=== PATIENT | male | born 1960 | race Caucasian/White ===

== ENCOUNTER 2021-04-14 23:41 | Inpatient (IN) | payer BC ==
[~2021-04-14] VITALS: Ht 167.6 cm; Wt 112.1 kg
[~2021-04-14 23:41] MED LIST: ACTOS 30 MG TAB30 MG PO; ASPIRIN325; KLOR-CON 1010 MEQ PO; PRINIVIL10 MG PO; SIMCOR 1,000-21 EACH PO; TOPROL XL25 MG PO
[2021-04-14 23:44] VITALS: BP 114/61
[2021-04-15] MEDS ORDERED: FREESTYLE LIBR1 EAC2 MISCELL (00:19)
[2021-04-15] MEDS ORDERED: TRESIBA FL200 UNIT/1 SUBQ (00:20)
[2021-04-15] MEDS ORDERED: SYNJARDY XR 121 EACH PO (00:20)
[2021-04-15] MEDS ORDERED: SIMVASTATIN40 MG PO (00:20)
[2021-04-15] MEDS ORDERED: METOPROLOL SUCC25 M1 PO (00:20)
[2021-04-15] MEDS ORDERED: NOVOLOG FL100 UNIT/M SUBQ (00:23)
[2021-04-15 00:29] LABS: ABSOLUTE NEUTROPHILS 10.8 thou/uL (1.4-8.2); BASOPHILS 1.3 % (0.0-2.0); EOSINOPHILS 0.8 % (0.0-3.0); HEMATOCRIT 31.3 % (42.0-52.0); HEMOGLOBIN 10.3 gm/dL (14.0-18.0); LYMPHOCYTES 10.9 % (24.0-44.0); MCH 32.7 pg (26.0-34.0); MCV 99.2 fL (80.0-100.0); MONOCYTES 8.6 % (1.0-8.0); PLATELET COUNT 157 thou/uL (150-400); POLYS 78.4 % (36.0-66.0); RBC 3.15 mil/uL (4.50-6.00); RDW 14.6 % (10.5-14.5); WBC 13.8 thou/uL (4.0-11.0)
[2021-04-15 00:33] LABS: CREATININE 1.1 mg/dL (0.7-1.3)
--- NOTE | 2021-04-15 02:20 | NUR ---
ENTERED ROOM AND NOTICED THAT IV GTT PROTONIX BAG NOT INFUSING VIA IV PUMP. MEDICATION HUNG AT 0100 AND FULL 80GM/250ML BAG INFUSED IN OVER 1 HOUR. PHARMACY NOTIFIED FOR POTENTIAL SIDE EFFECTS AND COMPLICATIONS TO MONITOR FOR. PER PHARMACY 80MG IS BOLUS DOSE WELL NO CONCERN FOR COMPLICATIONS. PROVIDER Nohelia NASH COMBINATION MAN NOTIFIED.
[2021-04-15 04:49] LABS: URINE BILIRUBIN NEGATIVE (Negative); URINE BLOOD NEGATIVE (Negative); URINE CLARITY CLEAR; URINE COLOR YELLOW; URINE GLUCOSE-RANDOM* 3+ (Negative); URINE KETONES NEGATIVE (Negative); URINE LEUKOCYTES-REFLEX NEGATIVE (Negative); URINE NITRITE-REFLEX NEGATIVE (Negative); URINE PROTEIN (DIPSTICK) NEGATIVE (Negative); URINE UROBILINOGEN 0.2 E.U./dl (0.2-1.0)
[2021-04-15 06:14] LABS: CHOLESTEROL 123 mg/dL (<200); HDL CHOLESTEROL 27 mg/dL (>40); LDL CHOLESTEROL 58 mg/dL (<100); TC:HDL 4.6 Ratio (Not establshd); TRIGLYCERIDE 190 mg/dL (<150); VLDL 38 mg/dL (<40)
[2021-04-15 06:15] LABS: SERUM ASSESSMENT Clear
[2021-04-15 08:30] VITALS: BP 112/71
[2021-04-15 11:07] LABS: HEMOGLOBIN 9.3 gm/dL (14.0-18.0)
[2021-04-15 13:07] VITALS: BP 106/63
[2021-04-15 16:18] VITALS: BP 118/73
[2021-04-15 18:10] VITALS: BP 128/74
[2021-04-15 18:16] VITALS: BP 128/74
--- NOTE | 2021-04-15 18:19 | NUR ---
PATIENT TRANSFERRED FROM ER TO ROOM 212. REPORT RECEIVED FROM KELLY. PATIENT ARRIVED ON FLOOR IN A WHEEL CHAIR A&O X4. PATIENT DENIES ANY COMPALAINTS AT THIS TIME. STATING HE WAS DIZZY EARLIER, FEELS FINE NOW. DENIES N/V, OR SOA. DAUGHTER AT BEDSIDE.
[2021-04-15 20:30] VITALS: BP 111/56
--- NOTE | 2021-04-16 04:04 | NUR ---
ASSESSMENTS CHARTED, MEDS CHARTED GIVEN. PATIENT RESTING IN BED DURING SHIFT. ON MAINTENANCE FLUIDS GOING AT 50ML/HR. PATIENT STATES DIZZINESS HAS GONE AWAY. ON ROOM AIR. NPO SINCE MIDNIGHT FOR EDG IN THE AM. UP AT SUZANNE IN ROOM.
[2021-04-16 05:19] VITALS: BP 124/68
[2021-04-16 06:29] LABS: HEMATOCRIT 27.5 % (42.0-52.0); HEMOGLOBIN 9.3 gm/dL (14.0-18.0); MCH 33.7 pg (26.0-34.0); MCV 99.2 fL (80.0-100.0); RBC 2.77 mil/uL (4.50-6.00); RDW 14.7 % (10.5-14.5); WBC 8.5 thou/uL (4.0-11.0)
[2021-04-16 06:46] LABS: CREATININE 0.8 mg/dL (0.7-1.3); POTASSIUM 3.8 mmol/L (3.5-5.1)
[2021-04-16 07:25] LABS: GLYCOHEMOGLOBIN (HGB A1C) 7.7 % (4.8-5.6)
--- NOTE | 2021-04-16 09:35 | HC ---
[facility] [place] [address] CONSULTATION Name: XAVIER SHOEMAKER Room #: 212-P [facility] IN ..#: [id number] Admission: 04/15/21 Attend Phys: Corine Lizarraga MD Discharge: Date of : 62 Report #: [id number] THIS REPORT FOR: cc: Ryan Reaves MD, Neal A. MD McElhinney, Christian C. MD ~ cc: Johnson Eid MD, Daysi Mar DATE OF SERVICE: 04/15/2021 HISTORY OF PRESENT ILLNESS: The patient is a 61-year-old male who has been complaining of dizziness for the last several days. He has noticed dizziness in the past when getting up from a standing position, but he was noticing this more frequently, even when walking at times. He has noticed the last 3-4 days, melanotic type stools. He does take aspirin 325 mg a day as he has had a previous history of VA with stent placements in the past. No previous history of upper GI bleed. He states a colonoscopy was done at age 51 in which several small polyps were removed. He has never had an upper endoscopy. He denies any nausea or vomiting. No dysphagia. No significant heartburn, does not take antacids on a regular basis. His hemoglobin on admission was 10.3, it dropped to 9.3. He was complaining of chest pain on admission as well as midepigastric abdominal pain, no significant shortness of breath other than with exertion. Cardiology has evaluated the patient. EKG was normal for any acute changes. Troponins have been negative. The patient is basically chest free at this time. They are okay to proceed with a GI procedure when needed. They recommend an echocardiogram and nuclear stress test at a later date. The patient denies any fevers or chills. ALLERGIES: No known drug allergies. PAST MEDICAL HISTORY: Coronary artery disease, history of VA with 2 stents placed approximately 12 years ago, history of non-insulin dependent diabetes, hypertension, hyperlipidemia. REVIEW OF SYSTEMS: As per HPI. SOCIAL HISTORY: Quit smoking 12 years ago. Denies any alcohol use. FAMILY HISTORY: Negative for colon cancer. PHYSICAL EXAMINATION: VITAL SIGNS: Temperature is 36.0, pulse 101, respiratory rate 21, blood pressure is 100/64. GENERAL: He is alert and oriented x 3, in no acute distress. HEENT: Sclerae nonicteric. Oropharynx clear. NECK: Supple, without lymphadenopathy. [facility] [address] [place] [address] CONSULTATION Name: XAVIER SHOEMAKER Room #: [facility]-P [facility] IN [facility]#: [id number] Admission: 04/15/21 Attend Phys: Corine Lizarraga MD Discharge: Date of : 62 Report #: [id number] CARDIOVASCULAR: Regular rhythm, mildly tachycardic at 105 range. CHEST: Clear to auscultation bilaterally. ABDOMEN: Soft, nontender, nondistended. Normoactive bowel sounds. EXTREMITIES: No cyanosis, clubbing or edema. LABORATORY DATA: WBC is 13.8, hemoglobin early this morning was 10.3 and most recent stool was Hemoccult positive x1. ASSESSMENT AND PLAN: Anemia, recent melanotic type stools, gastrointestinal bleed. The patient is currently Hemoccult positive on exam. He has been on aspirin on a regular basis. Suspect gastrointestinal bleed, likely upper source. We will plan on EGD tomorrow. We will start a soft diet today, n.p.o. after midnight. Agree with PPI drip, which has already been started, holding the aspirin, which has been held as well. Continue to monitor hemoglobin closely. We will make further recommendations after endoscopy tomorrow. Thank you for allowing me to participate in his care. <ELECTRONICALLY SIGNED> By: Duncan Mccoy MD 04/16/21 0935 1150 1236 Duncan Mccoy MD /nt
[2021-04-16 12:11] VITALS: BP 97/65
--- NOTE | 2021-04-16 16:39 | NUR ---
PATIENT HAD EGD TODAY, WAITING FOR COLONOSCOPY TOMORROW. ASSESMENTS COMPLETED AND CHARTED.
[2021-04-16 16:51] VITALS: BP 117/71
[2021-04-16 20:17] VITALS: BP 119/71
[2021-04-17 00:26] VITALS: BP 108/74
--- NOTE | 2021-04-17 02:45 | NUR ---
ASSESSMENT CHARTED, MEDS CHARTED GIVEN. PATIENT DOING A COLON PREP PRIOR TO MIDNIGHT. NPO SINCE MIDNIGHT FOR COLONOSCOPY IN THE AFTERNOON. PATIENT TO HAVE CARDIAC CATH IN THE MORNING.
[2021-04-17 05:07] VITALS: BP 102/54
--- NOTE | 2021-04-17 07:16 | EKG ---
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: ROLANDA : 1960 Requested By: Geovanny Medeiros Order Number: [id number] MD: Bismark Contreras Measurements Intervals [place] Rate: 115 P: 39 UT: 159 QRS: 7 QRSD: 98 T: 98 QT: 328 QTc: 454 Interpretive Statements Sinus tachycardia Low voltage, precordial leads Nonspecific T abnrm, anterolateral leads Compared to ECG 03/03/2010 11:32:44 Low QRS voltage now present Sinus rhythm no longer present Electronically Signed On 04-17-2021 7:16:27 SUPERVISOR POWDERED SUGAR by Bismark Contreras [email or web address] <ELECTRONICALLY SIGNED> By: Bismark Contreras MD, [facility] 04/17/21 0716 2354 2354 Bismark Contreras MD, [facility] /EPI
--- NOTE | 2021-04-17 07:30 | EKG ---
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 : 1960 Requested By: Johnson Eid Order Number: [id number] MD: Bismark Contreras Measurements Intervals [place] Rate: 94 P: 17 WV: 175 QRS: 31 QRSD: 100 T: 0 QT: 377 QTc: 472 Interpretive Statements Sinus rhythm Inferior infarct, old Compared to ECG 04/14/2021 23:54:17 Myocardial infarct finding now present Sinus tachycardia no longer present Electronically Signed On 04-17-2021 7:29:50 STATISTICAL METHODS PROFESSOR by Bismark Contreras [email or web address] <ELECTRONICALLY SIGNED> By: Bismark Contreras MD, [facility] 04/17/21 0729 1034 1034 Bismark Contreras MD, FACC /EPI
[2021-04-17 08:00] VITALS: BP 116/67
--- NOTE | 2021-04-17 08:52 | 2DMMODE ---
[facility] [place] [address] 2 D/M-MODE ECHOCARDIOGRAM Name: XAVIER SHOEMAKER Room #: 212-P ADM IN M.R.#: [id number] Admission: 04/15/21 Attend Phys: Corine Lizarraga MD Discharge: Date of : 62 Report #: [id number] THIS REPORT FOR: cc: Ryan Reaves MD, Neal A. MD Santiago, Patrick MD [facility] ~ APPROVED REPORT Study performed: 04/17/2021 07:10:34 EXAM: Comprehensive 2D, Doppler, and color-flow Echocardiogram Patient Location: Bedside Room #: 212 Status: routine BSA: 2.15 HR: 75 bpm BP: 102/54 mmHg Rhythm: NSR Other Information Study Quality: Adequate Indications Chest pain, [place]. Hx: ID, PCI, DM, HTN, HLP. 2D Dimensions IVSd: 9.85 (7-11mm) LVOT Diam: 22.85 (18-24mm) LVDd: 47.11 mm PWd: 10.14 (7-11mm) Ascending Ao: 37.94 (22-36mm) LVDs: 31.41 (25-40mm) Left Atrium: 37.19 (27-40mm) Aortic Root: 38.22 mm Volumes Left Atrial Volume (Systole) Single Plane 4CH: 48.19 mL Single Plane 2CH: 62.48 mL LA ESV Index: 28.00 mL/m2 Aortic Valve AoV Peak Tomi.: 1.43 m/s AO Peak Gr.: 8.22 mmHg LVOT Max P.61 mmHg LVOT Max V: 1.18 m/s SARAI Vmax: 3.39 cm2 [facility] [place] [place] [address] 2 D/M-MODE ECHOCARDIOGRAM Name: XAVIER SHOEMAKER Room #: 212-P [facility] IN [facility].#: [id number] Admission: 04/15/21 Attend Phys: Heather Bernardo Discharge: Date of : 62 Report #: [id number] Mitral Valve E/A Ratio: 0.8 MV Decel. Time: 194.10 ms MV E Max Tomi.: 1.01 m/s MV A Tomi.: 1.22 m/s MV PHT: 56.29 ms IVRT: 46.14 ms Pulmonary Valve PV Peak Tomi.: 1.34 m/s PV Peak Gr.: 7.15 mmHg Pulmonary Vein P Vein S: 0.57 m/s P Vein D: 0.36 m/s P Vein S/D Ratio: 1.58 Tricuspid Valve TR Peak Tomi.: 2.31 m/s RAP Estimate: 5.00 mmHg TR Peak Gr.: 21.31 mmHg PA Pressure: 26.00 mmHg Left Ventricle The left ventricle is normal size. There is normal LV segmental wall motion. Mild basal septal hypertrophy is present. Left ventricular systolic function is normal. LVEF is 60%. Mild diastolic dysfunction is present (impaired relaxation pattern). Right Ventricle The right ventricle is normal size. The right ventricular systolic function is normal. Atria The left atrium size is normal. The right atrium size is normal. Aortic Valve The aortic valve is normal in structure; mildly calcified. No aortic regurgitation is present. There is no aortic valvular stenosis. Mitral Valve The mitral valve is normal in structure. There is no mitral valve regurgitation noted. No evidence of mitral valve stenosis. Tricuspid Valve [facility] [place] [address] 2 D/M-MODE ECHOCARDIOGRAM Name: XAVIER SHOEMAKER Room #: 212-P [facility] IN ..#: [id number] Admission: 04/15/21 Attend Phys: Heather Bernardo Discharge: Date of : 62 Report #: [id number] The tricuspid valve is normal in structure. Trace tricuspid regurgitation. Estimated PAP is 26mmHg. Pulmonic Valve The pulmonary valve is normal in structure. Trace pulmonic regurgitation. Great Vessels The aorta/ascending aorta measure at the upper limits of normal (3.8cm). IVC is normal in size and collapses >50% with inspiration. Pericardium There is no pericardial effusion. <Conclusion> Normal left ventricle size with mild basal hypertrophy Ejection fraction 60% Grade 1 diastolic dysfunction Normal right ventricle size/function Normal atrial size Normal aortic/mitral valve structure and function Trace tricuspid valve insufficiency Pulmonary systolic pressure estimated 26 mmHg Ascending aorta upper limits of normal 3.8 cm No pericardial effusion <ELECTRONICALLY SIGNED> By: Bismark Contreras MD, FACC 04/17/21851 1 1 Bismark Contreras MD, FACC /INF
[2021-04-17 10:00] LABS: HEMATOCRIT 23.1 % (42.0-52.0); HEMOGLOBIN 7.8 gm/dL (14.0-18.0); MCH 33.1 pg (26.0-34.0); MCHC 33.7 g/dL (28.0-37.0); MCV 98.3 fL (80.0-100.0); RBC 2.35 mil/uL (4.50-6.00); RDW 14.8 % (10.5-14.5); WBC 6.7 thou/uL (4.0-11.0)
[2021-04-17 10:54] LABS: ABSOLUTE NEUTROPHILS 5.9 thou/uL (1.4-8.2); BASOPHILS 0.9 % (0.0-2.0); EOSINOPHILS 0.5 % (0.0-3.0); HEMATOCRIT 25.9 % (42.0-52.0); HEMOGLOBIN 8.8 gm/dL (14.0-18.0); MCH 33.5 pg (26.0-34.0); MCHC 34.1 g/dL (28.0-37.0); MCV 98.2 fL (80.0-100.0); MONOCYTES 7.1 % (1.0-8.0); PLATELET COUNT 116 thou/uL (150-400); POLYS 78.5 % (36.0-66.0); RBC 2.64 mil/uL (4.50-6.00); RDW 14.6 % (10.5-14.5); WBC 7.5 thou/uL (4.0-11.0)
[2021-04-17 11:00] VITALS: BP 118/74
[2021-04-17 11:01] LABS: CALCIUM 8.2 mg/dL (8.5-10.1); CREATININE 0.8 mg/dL (0.7-1.3); POTASSIUM 4.1 mmol/L (3.5-5.1)
[2021-04-17 11:07] LABS: ALBUMIN 2.8 g/dL (3.4-5.0); TOTAL BILIRUBIN 1.4 mg/dL (0.2-1.0); TOTAL PROTEIN 6.4 g/dL (6.4-8.2)
[2021-04-17 11:08] LABS: ALBUMIN 2.8 g/dL (3.4-5.0); APTT 26.5 Seconds (24.5-32.8); DIRECT BILIRUBIN 0.4 mg/dL (<0.1-0.2); INR 1.05; PROTIME 11.4 Seconds (10.5-12.1); TOTAL BILIRUBIN 1.4 mg/dL (0.2-1.0); TOTAL PROTEIN 6.4 g/dL (6.4-8.2)
[2021-04-17 12:50] LABS: URINE BILIRUBIN NEGATIVE (Negative); URINE BLOOD NEGATIVE (Negative); URINE CLARITY CLEAR; URINE COLOR YELLOW; URINE GLUCOSE-RANDOM* 2+ (Negative); URINE KETONES 1+ (Negative); URINE LEUKOCYTES-REFLEX NEGATIVE (Negative); URINE NITRITE-REFLEX NEGATIVE (Negative); URINE PROTEIN (DIPSTICK) NEGATIVE (Negative)
[2021-04-17 15:00] VITALS: BP 121/78
[2021-04-17 22:00] VITALS: BP 128/80
[2021-04-18] VITALS: BP 127/77
[2021-04-18 02:06] LABS: GLYCOHEMOGLOBIN (HGB A1C) 7.3 % (4.8-5.6)
[2021-04-18 03:48] VITALS: BP 119/77
--- NOTE | 2021-04-18 04:03 | NUR ---
PT RIGHT GROIN REMAINS CDI, VSS, C/O R SHOULDER PAIN FROM POSITIONING DURING CATH AND COLONOSCOPY TODAY TREATED WITH TYLENOL PRN, VEIN MAPPING AND US OF CAROTID DONE YESTERDAY, PLANNED CABG FOR FRIDAY 04/20, WILL CON'T TO MONITOR PER PPOC.
[2021-04-18 05:00] LABS: CALCIUM 8.4 mg/dL (8.5-10.1); CREATININE 0.8 mg/dL (0.7-1.3); POTASSIUM 3.8 mmol/L (3.5-5.1)
[2021-04-18 05:03] LABS: HEMATOCRIT 28.9 % (42.0-52.0); HEMOGLOBIN 9.7 gm/dL (14.0-18.0); MCH 33.1 pg (26.0-34.0); MCHC 33.6 g/dL (28.0-37.0); MCV 98.6 fL (80.0-100.0); RBC 2.93 mil/uL (4.50-6.00); RDW 14.1 % (10.5-14.5); WBC 8.3 thou/uL (4.0-11.0)
[2021-04-18 07:00] VITALS: BP 112/74
--- NOTE | 2021-04-18 07:24 | HC ---
[facility] [place] [address] CONSULTATION Name: XAVIER SHOEMAKER Room #: 212-P [facility] IN ..#: [id number] Admission: 04/15/21 Attend Phys: Corine Lizarraga MD Discharge: Date of : 62 Report #: [id number] THIS REPORT FOR: cc: Ryan Reaves MD, Neal A. MD Melton,Kolby BOBO ~ DATE OF SERVICE: 04/17/2021 The patient is seen on this visit by Dr. Contreras and Dr. Eid and Dr. Mccoy, as well as the hospitalist group. We were consulted by the hospitalist group for this patient to be seen. Dr. White was made aware by Dr. Eid we were consulted for coronary artery disease. HISTORY OF PRESENT ILLNESS: The patient is a pleasant 61-year-old male who presented to the Emergency Department on 04/14/2021. The patient has a history of hypertension, hypercholesterolemia and diabetes mellitus type 2, who presents to the Emergency Department complaining of some exertional dyspnea that has been progressive over the last week, more so in the last 2 days prior to admission. The patient did describe having chest pain on exertion, which lasted about 5-10 minutes, more so when he went up a flight of stairs. The patient has a known history of stents placed 12 years ago. The patient is found to be anemic on examination in the ER. The patient was set up for colonoscopy for today, on 04/17/2021. The patient did report having a couple days' worth of dark tarry stools. PAST SURGICAL HISTORY: The patient states he has had complete teeth extraction and does wear dentures and also stents x2, 12 years ago. SOCIAL HISTORY: The patient is , has 4 children living in good health. The patient quit smoking 12 years ago. He was a 40-year smoker, 1 pack a day and never drank alcohol. FAMILY HISTORY: Mother and father both . Mother at age 70, had coronary artery disease. Father at age 90, also had coronary artery disease. MEDICATION ALLERGIES: No known medication allergies. HOME MEDICATIONS: 1. Simvastatin 40 mg. 2. Metoprolol succinate 25 mg. 3. Lisinopril 10 mg daily. 4. Aspirin 325 mg daily. 5. NovoLog FlexPen 50 units subcutaneous. 6. Insulin degludec 70 units subcutaneous at bedtime. 7. Empagliflozin/metformin HCL 12.08/999 mg, take 1 [place] [address] CONSULTATION Name: XAVIER SHOEMAKER Room #: 212-P [facility] IN ..#: [id number] Admission: 04/15/21 Attend Phys: Corine Lizarraga MD Discharge: Date of : 62 Report #: [id number] day. 8. He also takes a niacin, simvastatin combination Simcor 1000/20 mg tablets daily. REVIEW OF SYSTEMS: GENERAL: The patient complains of some fatigue leading up to this issue arriving at the hospital. He does not have any issues sleeping. He states he does have an occasional headache, but more related to when he gets the nitroglycerin. Denies any vertigo or hearing loss. RESPIRATORY: He denies any current shortness of breath, but he does feel like he is so getting some dyspnea on exertion. He denies any orthopnea, wheezing or coughing. The patient does not have any current chest pain. States that he has not had any since his arrival to the hospital. He denies any jaw pain, arm pain or murmurs. SKIN: No rashes, psoriasis or eczema noted. ENDOCRINE: Denies cold feet, night sweats or lack in concentration. GASTROINTESTINAL: Denies nausea, vomiting, diarrhea or constipation, but he states that he did have black tarry stools, last one was yesterday while finishing his bowel prep. GENITOURINARY: The patient denies any urinary frequency bloody urination or painful urination. PSYCHOLOGIC: Denies any seizures or neuropathies. The patient denies any hallucination, depression or anxiety. MUSCULOSKELETAL: Denies any joint pain, stiffness or swelling. The patient denies any leg claudication. Denies any lupus, rheumatoid arthritis or celiac disease. PHYSICAL EXAMINATION: The patient weighed 234 pounds. VITAL SIGNS: Blood pressure is 116/67, pulse of 98, respirations 18, temperature is 37.1, O2 saturation 96% on room air. GENERAL: The patient is well-developed, well-nourished, slightly obese. Has normal speech and mentation. HEENT: His eyes are PERRLA. He is normocephalic. Gaze appearing conjugate in all positions. No evidence of nystagmus. CARDIOVASCULAR: Exam shows regular rate and rhythm, S1, S2, without murmur, gallops or thrills. No carotid bruits detected. LUNGS: Clear and equal on auscultation off all hutchinson. ABDOMEN: Soft, nontender, bowel sounds are present in all 4 quadrants. SKIN: The patient has normal color, normal turgor. NEUROLOGIC: His cranial nerves II-XII are examined and intact. The patient is alert and oriented x3. LABORATORY DATA: Urinalysis was negative. COVID test negative. Vein mapping and ultrasound carotids were done. Echo also had been done. White blood cell [facility] [address] [place] [address] CONSULTATION Name: XAVIER SHOEMAKER Room #: 212-P ADM IN M.R.#: [id number] Admission: 04/15/21 Attend Phys: Corine Lizarraga MD Discharge: Date of : 62 Report #: [id number] count today is 7.5, hemoglobin 8.8, hematocrit 25.9, platelets are 116. Chemistry: Sodium is 136, potassium 4.1, chloride is 101, carbon dioxide 25, BUN is 14, creatinine is 0.8, glucose is 166, calcium 8.2. AST 41, ALT 43, alkaline phosphatase is 112. Troponin last one done on the 04/16/2021 at 6:00 a.m. was 47, albumin 2.8. ASSESSMENT AND PLAN: 1. Anemia, possibly gastrointestinal bleed. Colonoscopy planned for today. 2. Coronary artery disease with triple vessel disease. Dr. White had discussed with Dr. Eid already in preparation for coronary artery bypass grafting later this week. We want the patient to be evaluated completely with the GI to identify any sources of bleeding and we are also working up preoperative studies, CBC, complete metabolic panel with liver enzymes, PA and lateral chest x-ray and a MRSA swab to be done and after which time then we can proceed on with using mupirocin b.i.d. and plan would be for coronary artery bypass grafting as stated later this week. <ELECTRONICALLY SIGNED> By: JERAMIE Floyd 04/18/21 0724 1045 1207 JERAMIE Floyd /nt
--- NOTE | 2021-04-18 10:25 | EKG ---
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
[2021-04-18 11:00] VITALS: BP 116/78
[2021-04-18 15:00] VITALS: BP 110/72
--- NOTE | 2021-04-18 16:09 | NUR ---
Met with Patient he admits with GI bleed. Need for CABG planned 04/20. 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 He is independent with adls and self care. He resides in home with 3 dtrs and stepson. Patient reports 2 dtrs work at same company. They work during day but step son goes to work later in day. Patient reports he will have assistance from them at home as needed. Resides in [facility]. All needs on one level but flight of steps to level. Patient reports 2 weeks off of work but plans to call HR regarding longer time off work to recover. PCP Dr Reaves
--- NOTE | 2021-04-18 16:40 | CATHLAB ---
[facility] [place] [place] [address] INVASIVE PROCEDURE REPORT Name: GISSELWhitneyXAVIER Jimenez Room #: 212-P ADM IN M.R.#: [id number] Admission: 04/15/21 Attend Phys: Corine Lizarraga MD Discharge: Date of : 62 Report #: [id number] THIS REPORT FOR: cc: Ryan Reaves MD, Neal A. MD Mancuso, Gerald M. MD [facility] ~ APPROVED REPORT Study performed: 04/17/2021 07:44:08 Patient Details Patient Status: In-Patient Room #: 212 The patient is a 61 year-old male Event Personnel Johnson Eid Molder Punch, Cuong Jaramillo RN RN, Jewels Canchola RTR ScrubRashard Nancy RTR, RESPITE WORKER Monitor, Vahe Bragg RN termite inspector Performed Art Access - R femoral artery* Left Heart Cath w/or w/o Coronaries [id number] [facility] Aortogram Abdominal Peripheral Angio [id number] [id number] Initial Mod Sed Same Phys/QHP Gr5y 086059 02058 Mod Sed Same Phys/QHP Ea 128814 Hemostasis w/ Mynx Indication Chest pain Procedure Narrative The Right Groin^ was infiltrated with 1% Lidocaine subcutaneous anesthesia. A PINNACLE 6FR Sheath #[id number] sheath was inserted into the RFA^. Coronary angiography was performed using coronary diagnostic catheters. The right coronary system was accessed and visualized with a JR4 catheter. The left coronary system was accessed and visualized with a JL4 catheter. The left ventricle was accessed and visualized with a PIGTAIL catheter. Left ventriculogram was performed in 30 degree projection. An aortogram of the abdominal aorta was performed. Pre-demployment femoral angiogram was performed . Closure device was deployed with a 6 Fr MYNXGRIP 6/7F #[id number]. The patient tolerated the procedure well and there were no complications associated with the procedure. There was no hematoma. Intraoperative Conscious Sedation Sedation start time: 08:57 Case end Time: [facility] [address] [place] [address] INVASIVE PROCEDURE REPORT Name: XAVIER SHOEMAKER Room #: 212-P [facility] IN [facility].#: [id number] Admission: 04/15/21 Attend Phys: Heather Bernardo Discharge: Date of : 62 Report #: [id number] 09:35 Fentanyl 50 mcg Versed 2 mg Fluoro Time: 2.20 minutes Dose: DAP 90253.00 cGycm2 1267 mGy Contrast Type and Amount: Omnipaque 145 ml Hemodynamics The aortic pressure is 94/60 mmHg with a mean of 75 mmHg. The left ventricular pressure is 114/6 mmHg with a mean of mmHg. The left ventricular end diastolic pressure is 24 mmHg. Conclusion #1 Normal left ventricular size systolic function lower limits of normal EF 50 to 55%. #2 the left main is long and free of disease giving rise to the LAD and circumflex. #3 the LAD is moderately calcified there is a very eccentric proximal lesion that is approaching 80 to 90% in some views and then a well-preserved vessel which extends around the apex. Heavy calcification proximal segment. #4 there is a high-grade ostial circumflex lesion which appears to be also very eccentric and a focal segment of calcium at that takeoff appears to somewhat obstruct the distal left main. Very eccentric focal segment of calcium. #5 the dominant right coronary previously placed proximal mid and mid distal stents. There is a area which is either a focal segment in-stent or between stents which is high-grade stenosis. #6 abdominal aorta is ectatic and moderately calcified diffusely narrowed no aneurysm. Recommendations and plan: Continue aggressive risk factor modification. There is significant three-vessel disease with heavy proximal calcification. Revascularization with bypass surgery is warranted here. He does have rest pain. Will initiate nitrate therapy CV surgical consultation. He is pain-free upon transfer. <ELECTRONICALLY SIGNED> By: Johnson Eid MD, FACC 04/18/21 1640 1640 1640 Johnson Eid MD, FACC /INF
[2021-04-18 20:15] VITALS: BP 107/73
[2021-04-19 04:45] VITALS: BP 119/81
--- NOTE | 2021-04-19 05:47 | NUR ---
Pt. rested quietly at short intervals during the night when checked on during frequent rounds. He has had po pain meds for c/o a headache and right shoulder pain (see emar) with some relief noted. Pt. has been up ad luisa in his room.
[2021-04-19 06:41] LABS: HEMATOCRIT 28.4 % (42.0-52.0); HEMOGLOBIN 9.6 gm/dL (14.0-18.0); MCH 32.8 pg (26.0-34.0); MCHC 33.7 g/dL (28.0-37.0); MCV 97.3 fL (80.0-100.0); RBC 2.92 mil/uL (4.50-6.00); RDW 14.4 % (10.5-14.5); WBC 8.7 thou/uL (4.0-11.0)
[2021-04-19 07:08] LABS: CALCIUM 8.3 mg/dL (8.5-10.1); CREATININE 0.8 mg/dL (0.7-1.3); POTASSIUM 3.6 mmol/L (3.5-5.1)
[2021-04-19 07:23] VITALS: BP 126/80
[2021-04-19 11:39] VITALS: BP 127/76
[2021-04-19 15:32] VITALS: BP 128/69
--- NOTE | 2021-04-19 15:52 | NUR ---
NO FALLS OR INJURIES THIS SHIFT. ALL SAFETY MEASURES IN PLACE. VSS. PATIENT ABLE TO COMPLETE ADLs INDEPENDENTLY, UP AD SUZANNE IN ROOM. PLANS FOR CABG SURGERY TOMORROW. ALL TESTING HAS BEEN COMPLETED AND NEW ORDERS ADKNOWLEDGED FOR TOMORROW. PATIENT AGREES WITH POC.
[2021-04-19 20:17] VITALS: BP 106/66
[2021-04-20] VITALS (17 sets, daily range): BP systolic 90–116; BP diastolic 51–70
--- NOTE | 2021-04-20 03:50 | NUR ---
Assumed pt care at 1900. Pt is alert and oriented. No sign of distress noted in pt. Denies any pain. Family at bedside for a short amout of time. Pt seemed anxious about CABG to be performed. Patient is ambulatory. Vital signs stable. Pt is been prepped for surgery. Scheduled meds administered to pt. Pt is NPO after midnight for scheduled surgery. No acute event during the night. Continue to monitor. No further needs at this time.
--- NOTE | 2021-04-20 09:12 | PATH ---
[facility] [place] [address] PATHOLOGY RPT PROCEDURE Name: NAVIDXAVIER Room #: 150-1 ADM IN M.R.#: [id number] Admission: 04/15/21 Date of : 62 Discharge: Report #: [id number] Path Case #: [id number] LCA Accession Number: [id number] . 01 Material submitted: . PART A: cecum - CECAL POLYP PART B: colon - POLYP ASCENDING COLON. Modifiers: ascending PART C: splenic flexure - SPLENIC FLEXURE . 01 Clinical history: . COLONOSCOPY MELENA, ANEMIA COLON POLYPS, HEMORRHOIDS . 02 Diagnosis: A. Large bowel "cecal polyp", biopsy: - Tubular adenoma; negative for high-grade dysplasia and malignancy. . B. Large bowel "polyp ascending colon": - Tubular adenoma; negative for high-grade dysplasia and malignancy. . C. Large bowel "splenic flexure", biopsy: - Tubular adenoma; negative for high-grade dysplasia and malignancy. (MLK:miguelito; 04/19/2021) QMS 04/19/2021 1103 Local . 02 Electronically signed: . Stone Stahl MD, Pathologist NPI- [id number] . 01 Gross description: . A. The specimen is received in formalin, labeled "Xavier Eckert, cecal polyp". Received is a segment of pale hall tissue measuring 0.5 cm in maximum dimensions. The specimen is submitted entirely in cassette A1. . B. The specimen is received in formalin, labeled "Xavier Eckert, polyp ascending colon". Received is a segment of pale hall tissue measuring 0.3 cm in maximum dimensions. The specimen is submitted entirely in cassette B1. . C. The specimen is received in formalin, labeled "Xavier Eckert, splenic flexure". Received are 2 segments of pale hall tissue ranging in size from 0.2 cm to 0.4 cm in maximum dimensions. The specimen is submitted entirely in cassette C1.([facility]; 04/17/2021) [facility] 04/17/2021 174 Local . 02 Pathologist provided ICD-10: [address] [address] PATHOLOGY RPT PROCEDURE Name: NAVIDXAVIER Room #: 150-1 [facility] IN M.R.#: [id number] Admission: 04/15/21 Date of : 62 Discharge: Report #: [id number] Path Case #: [id number] D12.0, D12.2, D12.3 . 02 CPT . [id number], [id number], [id number] Specimen Comment: A courtesy copy of this report has been sent to [phone] Specimen Comment: [phone], Specimen Comment: Report sent to , DR BUENO / DR ODONNELL Specimen Comment: A duplicate report has been generated due to demographic updates. Performed at: 01 [facility] [address] [place] [id number] MD Dionisio Reid MD Phone: [phone] Performed at: [address] [id number] MD Donte Nicole MD Phone: [phone]
--- NOTE | 2021-04-20 09:12 | PATH ---
[facility] [address] [place] [address] PATHOLOGY RPT PROCEDURE Name: XAVIER SHOEMAKER Room #: 150-1 ADM IN M.R.#: [id number] Admission: 04/15/21 Date of : 62 Discharge: Report #: [id number] Path Case #: [id number] LCA Accession Number: [id number] . 01 Material submitted: . PART A: gastrointestinal site - GASTRITIS PART B: esophagus - ESOPHAGIITIS . 01 Clinical history: . GI BLEED ANEMIA GASTRITIS RULE OUT HIATAL HERNIA RULE OUT MILLER'S . 02 Diagnosis: A. Gastric, endoscopic biopsy: - Gastric antral mucosa with features of mild reactive gastropathy. - Immunophenohistochmical stain for H. pylori like organisms is negative. . B. Esophagitis, endoscopic biopsy: - Miller's esophagus. - Negative for dysplasia or malignancy. (ANK:miguelito; 04/19/2021) QMS 04/19/2021 1130 Local . 02 Electronically signed: . Lillie Bennett MD, Pathologist NPI- [id number] . 01 Gross description: . A. The specimen is received in formalin, labeled "Xavier Shoemaker, gastritis, R/O hiatal hernia". Received are 2 segments of pale hall tissue measuring 0.4 and 0.5 cm in maximum dimensions. The specimen is entirely submitted in cassette A1. . B. The specimen is received in formalin, labeled "Xavier Shoemaker, esophagitis, R/O Miller's". Received are 2 segments of pale hall tissue measuring 0.2 and 0.3 cm in maximum dimension. The specimen is entirely submitted in cassette B1. ([facility]; 04/17/2021) NRI/NRI 04/17/2021 1424 Local . 02 Pathologist provided ICD-10: K31.9, K22.70 . 02 [facility] [place] [address] PATHOLOGY RPT PROCEDURE Name: XAVIER SHOEMAKER Room #: 150-1 [facility] IN [facility]#: [id number] Admission: 04/15/21 Date of : 62 Discharge: Report #: [id number] Path Case #: [id number] Specimen Comment: A courtesy copy of this report has been sent to [phone] Specimen Comment: Report sent to Dr.MCELHINNEY Specimen Comment: A duplicate report has been generated due to demographic updates. Performed at: [address] [facility] [address], [place], [place] [id number] MD Dionisio Reid MD Phone: [phone] Performed at: [address] [id number] MD Lillie Bennett MD Phone: [phone]
[2021-04-20 12:24] LABS: HEMATOCRIT 20.8 % (42.0-52.0); MCH 32.1 pg (26.0-34.0); MCHC 33.1 g/dL (28.0-37.0); MCV 97.2 fL (80.0-100.0); RBC 2.14 mil/uL (4.50-6.00); RDW 14.8 % (10.5-14.5); WBC 11.9 thou/uL (4.0-11.0)
[2021-04-20 12:25] LABS: HEMOGLOBIN 6.9 gm/dL (14.0-18.0)
[2021-04-20 12:38] LABS: PROTIME 16.7 Seconds (10.5-12.1)
[2021-04-20 12:47] LABS: INR 1.57
[2021-04-20 13:15] LABS: POC BE 0 mmol/L (-2.0 to +3.0); POC CA IONIZED 4.1 mg/dL (4.5-5.3); POC GLUCOSE 183 mg/dL (70-99); POC HCO3 24.6 mmol/L (22.0-26.0); POC HEMOGLOBIN 7.1 g/dL (14.0-18.0); POC POTASSIUM 4.1 mmol/L (3.5-5.1); POC SODIUM 135 mmol/L (136-145); POC pCO2 38.8 mmHg (35.0-45.0)
[2021-04-20 13:15] LABS: POC BE 2 mmol/L (-2.0 to +3.0); POC CA IONIZED 4.6 mg/dL (4.5-5.3); POC GLUCOSE 168 mg/dL (70-99); POC HCO3 26.6 mmol/L (22.0-26.0); POC HEMOGLOBIN 8.8 g/dL (14.0-18.0); POC POTASSIUM 4.2 mmol/L (3.5-5.1); POC SODIUM 132 mmol/L (136-145); POC pCO2 39.4 mmHg (35.0-45.0); POC pH 7.437 (7.360-7.450)
[2021-04-20 13:15] LABS: POC BE 3 mmol/L (-2.0 to +3.0); POC CA IONIZED 4.1 mg/dL (4.5-5.3); POC GLUCOSE 176 mg/dL (70-99); POC HCO3 27.6 mmol/L (22.0-26.0); POC HEMOGLOBIN 7.1 g/dL (14.0-18.0); POC POTASSIUM 4.2 mmol/L (3.5-5.1); POC SODIUM 135 mmol/L (136-145); POC pCO2 44.6 mmHg (35.0-45.0); POC pH 7.399 (7.360-7.450)
[2021-04-20 13:20] LABS: POC BE -3 mmol/L (-2.0 to +3.0); POC CA IONIZED 4.4 mg/dL (4.5-5.3); POC GLUCOSE 160 mg/dL (70-99); POC HCO3 23.5 mmol/L (22.0-26.0); POC HEMOGLOBIN 7.8 g/dL (14.0-18.0); POC POTASSIUM 4.3 mmol/L (3.5-5.1); POC SODIUM 134 mmol/L (136-145); POC pCO2 50.6 mmHg (35.0-45.0); POC pH 7.275 (7.360-7.450)
[2021-04-20 13:20] LABS: POC BE -1 mmol/L (-2.0 to +3.0); POC CA IONIZED 4.5 mg/dL (4.5-5.3); POC GLUCOSE 147 mg/dL (70-99); POC HCO3 24.1 mmol/L (22.0-26.0); POC HEMOGLOBIN 8.8 g/dL (14.0-18.0); POC POTASSIUM 4.1 mmol/L (3.5-5.1); POC SODIUM 134 mmol/L (136-145); POC pCO2 38.1 mmHg (35.0-45.0); POC pH 7.409 (7.360-7.450)
[2021-04-20 13:20] LABS: POC BE -2 mmol/L (-2.0 to +3.0); POC CA IONIZED 6.8 mg/dL (4.5-5.3); POC GLUCOSE 175 mg/dL (70-99); POC HCO3 23.5 mmol/L (22.0-26.0); POC HEMOGLOBIN 7.1 g/dL (14.0-18.0); POC POTASSIUM 4.4 mmol/L (3.5-5.1); POC SODIUM 133 mmol/L (136-145); POC pCO2 42.3 mmHg (35.0-45.0); POC pH 7.352 (7.360-7.450)
[2021-04-20 13:21] LABS: POC BE -2 mmol/L (-2.0 to +3.0); POC GLUCOSE 167 mg/dL (70-99); POC HCO3 22.9 mmol/L (22.0-26.0); POC HEMOGLOBIN 7.1 g/dL (14.0-18.0); POC SODIUM 134 mmol/L (136-145); POC pCO2 36.4 mmHg (35.0-45.0); POC pH 7.406 (7.360-7.450)
[2021-04-20 13:21] LABS: POC BE -4 mmol/L (-2.0 to +3.0); POC CA IONIZED 4.7 mg/dL (4.5-5.3); POC GLUCOSE 133 mg/dL (70-99); POC HCO3 21.2 mmol/L (22.0-26.0); POC HEMOGLOBIN 7.5 g/dL (14.0-18.0); POC SODIUM 137 mmol/L (136-145); POC pCO2 35.8 mmHg (35.0-45.0)
[2021-04-20 14:13] LABS: HEMATOCRIT 25.5 % (42.0-52.0); HEMOGLOBIN 8.4 gm/dL (14.0-18.0); MCH 31.7 pg (26.0-34.0); MCHC 32.8 g/dL (28.0-37.0); MCV 96.6 fL (80.0-100.0); RBC 2.64 mil/uL (4.50-6.00); RDW 14.5 % (10.5-14.5)
[2021-04-20 14:22] LABS: BE(vivo) -4.6 mmol/L (-2 to +3); HCO3 21.2 mmol/L (22.0-26.0); PCO2 41.9 mmHg (35.0-45.0); PO2 90.6 mmHg (80.0-100.0); pH 7.321 (7.360-7.450); sO2 96.3 % (92.0-98.0)
[2021-04-20 14:24] LABS: WBC 30.2 thou/uL (4.0-11.0)
[2021-04-20 14:28] LABS: CALCIUM 8.1 mg/dL (8.5-10.1); MAGNESIUM 2.2 mg/dL (1.8-2.4); POTASSIUM 4.3 mmol/L (3.5-5.1)
[2021-04-20 14:30] LABS: APTT 28.3 Seconds (24.5-32.8); INR 1.19; PROTIME 12.9 Seconds (10.5-12.1)
--- NOTE | 2021-04-20 15:48 | NUR ---
61 year old male that admitted on 04-15-21 with GI bleed and upon evaluation found to be in need and underwent CABG today. Per CTS Coronary artery bypass x 3 completed. Notably patient lives at home with 3 daughters and 1 step son. Patient is working fulltime and lives in a raised ranch home and all current needs are on one level noting a flight of stairs to get to that level. CTS to guide levels of care as moving closer to discharge needs. No anticipated CM needs at this time. CM to follow when moving closer to discharge needs being identified.
[2021-04-20 17:08] LABS: BE(vivo) -1.5 mmol/L (-2 to +3); HCO3 23.2 mmol/L (22.0-26.0); PCO2 38.9 mmHg (35.0-45.0); PO2 119.6 mmHg (80.0-100.0); pH 7.393 (7.360-7.450); sO2 98.3 % (92.0-98.0)
--- NOTE | 2021-04-20 17:52 | NUR ---
PT ARRIVED FROM THE OR WITH STAFF MEMBERS PRESENT, AT THE TIME OF ARRIVAL PT WAS STILL UNDER SEDATION AND WAS NOT ON ANY DRIPS. INSULIN CHECKS WERE DONE AND INSULIN GTT WAS INITATED PER WRITTEN ORDER, CARDENE GTT WAS TURNED ON/OFF ACCORDING TO PT PRESENTATION, ORDERED MEDICATIONS WERE ADMINISTERED PER ORDER AND PT CARE PROVIDED ACCORDINGLY. PT WAS REASSURED/REORIENTED MULTIPLE TIMES DURING THIS RECOVERY PERIOD, TWO DAUGHTERS WERE BOTH PRESENT AT BEDSIDE FOR FEW MINUTES DURING THIS TIME WELL, RN PROVIDED UPDATES AND WAYS TO RETREIVE MORE INFORMATION. UNFORTUNATELY THE OF THE PT HAD TWO YEARS AGO. PAIN IS AN ISSUE FOR THE PT RESPIRATORY RATE WAS MID 30s WHILE PAIN WAS PRESENT, PT FOUND RELIEF WITH USAGE OF FENTANYL 25MCG AND WAS ABLE TO BE EXTUBATED AT 1720 WITH RT LEADING THE PROCEDURE. NO COMPLAINTS FROM THE PT, ICE CHIPS PROVIDED, BOTH ARMS FLOATED ON PILLOWS TO OFFSET THE WEIGHT AND PROVIDE RELIEF. INSULIN DRIP STILL RUNNING AND BEING MAINTAINED PER ORDER. RN WILL CONTINUE TO MONITOR UNTIL END OF THE SHIFT.
[2021-04-20 21:19] LABS: BE(vivo) -3.9 mmol/L (-2 to +3); HCO3 19.7 mmol/L (22.0-26.0); PCO2 30.6 mmHg (35.0-45.0); PO2 86.2 mmHg (80.0-100.0); pH 7.427 (7.360-7.450); sO2 96.9 % (92.0-98.0)
[2021-04-21] VITALS (7 sets, daily range): BP systolic 92–98; BP diastolic 58–62
[2021-04-21 03:50] LABS: MAGNESIUM 1.9 mg/dL (1.8-2.4); POTASSIUM 4.4 mmol/L (3.5-5.1)
[2021-04-21 04:35] LABS: HEMATOCRIT 24.1 % (42.0-52.0); HEMOGLOBIN 7.9 gm/dL (14.0-18.0); MCH 31.9 pg (26.0-34.0); MCV 96.6 fL (80.0-100.0); RBC 2.49 mil/uL (4.50-6.00); RDW 14.5 % (10.5-14.5); WBC 15.3 thou/uL (4.0-11.0)
--- NOTE | 2021-04-21 08:23 | NUR ---
PT GOT UP TO THE CHAIR WITH TWO RN ASSISTANCE AND ONE RN LINE MANAGEMENT, PT AT THE TIME OF GETTING UP WAS CLOSING EYES AND HAD MODERATE EFFORT BUT WAS ABLE TO TURN AND PIVOT TO THE BED WITH GUIDANCE/DIRECTION. COMPLAINTS OF CHEST PAIN CONTINUES, RN WILL CONSULT WITH TEAM TO SEE IF THERES OPTIONS WITHOUT THE USAGE OF NARCOTICS TO PROMOTE EARLY AMBULATION W/O OVER SEDATION. ECG THIS MORNING SHOWED ABNORMAL RESULT, / BOTH NOTIFIED. CONTINUING TO MONITOR AND AWAITING ORDERS
--- NOTE | 2021-04-21 09:05 | NUR ---
Pt s/p CABG on 04/20. Hx DM, HLD, HTN. Diet newly advanced. HDL 27, triglycerides 190, A1C 7.3. Will address any nutrition education needs once out of ICU and at more appropriate time.
--- NOTE | 2021-04-21 11:22 | EKG ---
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 : 1960 Requested By: Kolby Fermin Order Number: [id number] MD: Malik Santiago Measurements Intervals [place] Rate: 105 P: 31 AR: 156 QRS: 43 QRSD: 97 T: -19 QT: 417 QTc: 552 Interpretive Statements Sinus tachycardia Possible inferior infarct, old Prolonged QT interval Compared to ECG 04/18/2021 07:16:25 Prolonged QT interval now present Electronically Signed On 04-21-2021 11:22:37 SIGN CARPENTER by Malik Santiago [email or web address] <ELECTRONICALLY SIGNED> By: Malik Santiago MD, [facility] 04/21/21 1122 1408 140 Malik Santiago MD, [facility] /EPI
--- NOTE | 2021-04-21 11:34 | EKG ---
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 : 1960 Requested By: Kloby Fermin Order Number: [id number] MD: Malik Santiago Measurements Intervals [place] Rate: 90 P: 6 MO: 166 QRS: 5 QRSD: 96 T: -10 QT: 396 QTc: 485 Interpretive Statements Sinus rhythm Inferior infarct, age indeterminate Diffuse ST segment elevation, consider pericarditis Compared to ECG 04/20/2021 14:08:54 Sinus tachycardia no longer present Changes consistent with pericarditis are now present Electronically Signed On 04-21-2021 11:34:29 COMPUTER AIDED DESIGN TECHNICIAN by Malik Santiago [email or web address] <ELECTRONICALLY SIGNED> By: Malik Santiago MD, [facility] 04/21/21 1134 0741 0741 Malik Santiago MD, [facility] /EPI
[2021-04-22 07:30] LABS: HEMATOCRIT 22.3 % (42.0-52.0); HEMOGLOBIN 7.2 gm/dL (14.0-18.0); MCH 31.1 pg (26.0-34.0); MCV 97.3 fL (80.0-100.0); RBC 2.3 mil/uL (4.50-6.00); RDW 15.2 % (10.5-14.5); WBC 11.7 thou/uL (4.0-11.0)
[2021-04-22 12:22] VITALS: BP 87/52
--- NOTE | 2021-04-22 13:58 | NUR ---
PT PROGRESSING TOWARDS DISCHARGE AT THIS TIME, PT WAS ABLE TO AMBULATE THIS MORNING WITH PT/OT, WALK AROUND IN ROOM WITH CONTACT GUARD AND ONE PERSON ASSIST USING THE GAITBELT, PAIN SEEMS TO BE THE BIGGEST BARRIER AT THIS TIME, RN EXPLAINED THAT FREEDOM FROM PAIN IS IRRATIONAL AT THIS TIME DUE TO SIGNIFICANT SURGERY BUT WILL GIVE ORDERED MEDS TO HELP ALLEVIATE PAIN POSSIBLE WITHOUT OVERSEDATING SO PT CAN STILL PARTICIPATE IN ACTIVITIES AND WORK TOWARDS DISCHARGE, PT EXPLAINS UNDERSTANDING AND ABLE TO TEACH BACK. REPORT GIVEN TO CCU RN, ALL BELONGINGS SENT OVER, AT THE TIME OF TRANSFER, PT ON ROOM AIR, SENT OVER ON WHEEL CHAIR, RN SIGNING OFF
[2021-04-22 14:09] LABS: CALCIUM 8.5 mg/dL (8.5-10.1); CREATININE 1.3 mg/dL (0.7-1.3); POTASSIUM 4.3 mmol/L (3.5-5.1)
[2021-04-22 16:30] VITALS: BP 84/42
[2021-04-22 20:15] VITALS: BP 81/41
[2021-04-23] VITALS (9 sets, daily range): BP systolic 72–99; BP diastolic 39–60
[2021-04-23 04:24] LABS: HEMOGLOBIN 7.6 gm/dL (14.0-18.0); MCH 31.7 pg (26.0-34.0); RBC 2.4 mil/uL (4.50-6.00); RDW 15.7 % (10.5-14.5); WBC 11.3 thou/uL (4.0-11.0)
[2021-04-23 04:37] LABS: CALCIUM 8.1 mg/dL (8.5-10.1); CREATININE 1.9 mg/dL (0.7-1.3); POTASSIUM 4.2 mmol/L (3.5-5.1)
--- NOTE | 2021-04-23 08:09 | NUR ---
PT IN RECLINER. DENIES NEED FOR PAIN MEDICATION. FINALLY URINATED POST CATHETER REMOVAL. PT BP IN 80'S SINCE NOON 04/22 BEFORE TRANSFER FROM ICU. PT GOT A LITTLE NAUSEATED--ZOFRAN GIVEN. CONTACTED DR. NGUYEN REGARDING LOW BP. RECEIVED ORDER TO START NS @125. PT RESTING IN RECLINER. CALL LIGHT WITHIN REACH. FREQUENT OBSERVATION.
[2021-04-23 15:30] LABS: HEMOGLOBIN 8.2 gm/dL (14.0-18.0)
[2021-04-24 00:14] VITALS: BP 91/48
[2021-04-24 04:12] VITALS: BP 98/55
[2021-04-24 04:20] LABS: CALCIUM 7.7 mg/dL (8.5-10.1); CREATININE 1.4 mg/dL (0.7-1.3)
[2021-04-24 04:21] LABS: ABSOLUTE NEUTROPHILS 5.2 thou/uL (1.4-8.2); BASOPHILS 0.3 % (0.0-2.0); EOSINOPHILS 1.8 % (0.0-3.0); HEMATOCRIT 24.7 % (42.0-52.0); HEMOGLOBIN 8.3 gm/dL (14.0-18.0); MCH 31.8 pg (26.0-34.0); MCHC 33.8 g/dL (28.0-37.0); MCV 94.2 fL (80.0-100.0); MONOCYTES 15.2 % (1.0-8.0); PLATELET COUNT 169 thou/uL (150-400); POLYS 72.7 % (36.0-66.0); RBC 2.62 mil/uL (4.50-6.00); RDW 16.3 % (10.5-14.5); WBC 7.1 thou/uL (4.0-11.0)
--- NOTE | 2021-04-24 05:28 | NUR ---
PT IS ALERT AND ORINTED X4. LUNGS ARE CLEAR TO DIMINISHED . ABDOMEN IS ROUDN BOWEL SOUNDS ACTIVE X4. USING INCENTIVE SPIROMETRY AT BEDSIDE. SITING UP IN THE CHAIR WITH HEART PILLOW. SOME COMPLAINTS OF GENERAL ACHYNESS PAIN MED GIVEN ONCE SEE MAR FOR TIME OF ADMINSITRATION. DRESSSING DRY AND INTACT TO CHEST. ELIZABETH DRAIN PRESENT. VOIDS IN URINAL AT BEDSIDE. CALL LIGHT WITHHIN REACH IF NEEDS NURSING ASSISTANCE PER STAFF.
[2021-04-24 08:09] VITALS: BP 99/51
[2021-04-24 12:00] VITALS: BP 104/54
[2021-04-24 16:10] VITALS: BP 98/57
--- NOTE | 2021-04-24 16:22 | NUR ---
[facility] CAN ACCEPT PT ONCE MEDICALLY STABLE TO DC. PT IS AGREEABLE. CM MET WITH PT THIS DAY. FAMILY AT SIDE.
[2021-04-24 20:53] VITALS: BP 109/62
[2021-04-25 03:27] LABS: HEMATOCRIT 22.5 % (42.0-52.0); HEMOGLOBIN 7.4 gm/dL (14.0-18.0); MCH 30.6 pg (26.0-34.0); MCHC 32.8 g/dL (28.0-37.0); MCV 93.1 fL (80.0-100.0); RBC 2.42 mil/uL (4.50-6.00); RDW 16.9 % (10.5-14.5); WBC 7.3 thou/uL (4.0-11.0)
[2021-04-25 03:50] LABS: CALCIUM 7.5 mg/dL (8.5-10.1); CREATININE 0.9 mg/dL (0.7-1.3); POTASSIUM 3.7 mmol/L (3.5-5.1)
[2021-04-25 05:48] VITALS: BP 102/52
--- NOTE | 2021-04-25 06:50 | NUR ---
ASSUMED CARE OF PT AT 1900. PT ASSESSED TO BE AOX4 61M PRESENTING POST GI BLEED AND CABG. PT WAS ABLE TO REST TRHOUGHOUT THE NIGHT QUIETLY IN CHAIR WITH NO COMPLAINTS, VSS. PT STABLE ON ROOM AIR, NS ON THE MONITOR, BLOOD SUGARS RUN HIGH, INCISIONS INTACT AND BRACING PILLOW USED, ELIZABETH DRAIN PATENT. PT ABLE TO AMBULATE SBA, FLUIDS INFUSING. ELIZABETH DRAIN WAS CAUGHT IN CHAIR AND MAY BE LEAKING NOW, WILL PASS ON TO DAY SHIFT RN AND CONT TO MONITOR.
[2021-04-25 07:00] VITALS: BP 103/48
[2021-04-25 11:00] VITALS: BP 105/55
--- NOTE | 2021-04-25 17:02 | NUR ---
FOLLOWING PT/OT RECOMMENDATIONS PT TO DC WITH HOME HEALTH. [facility] HAS ACCEPTED PT AND PT IS AGREEABLE. CM WILL CONTINUE TO FOLLOW.
[2021-04-25 18:30] VITALS: BP 119/59
[2021-04-25 19:31] VITALS: BP 109/56
[2021-04-26 02:39] LABS: ABSOLUTE NEUTROPHILS 6.1 thou/uL (1.4-8.2); BASOPHILS 0.5 % (0.0-2.0); EOSINOPHILS 1.9 % (0.0-3.0); HEMOGLOBIN 7.7 gm/dL (14.0-18.0); LYMPHOCYTES 11.6 % (24.0-44.0); MCH 30.3 pg (26.0-34.0); MCHC 32.3 g/dL (28.0-37.0); MCV 93.9 fL (80.0-100.0); MONOCYTES 11.5 % (1.0-8.0); PLATELET COUNT 174 thou/uL (150-400); POLYS 74.5 % (36.0-66.0); RBC 2.55 mil/uL (4.50-6.00); RDW 16.8 % (10.5-14.5); WBC 8.2 thou/uL (4.0-11.0)
[2021-04-26 03:27] VITALS: BP 114/53
[2021-04-26 03:44] LABS: CALCIUM 7.9 mg/dL (8.5-10.1); CREATININE 0.9 mg/dL (0.7-1.3); POTASSIUM 3.8 mmol/L (3.5-5.1)
--- NOTE | 2021-04-26 04:58 | NUR ---
Assumed pt care at 1900. Pt is alert and oriented. Pt is sitting on the recliner. Verbalizes pain. Pain med administered upon requested. Assessment completed and documented. Scheduled meds administered to pt. No acute event through the night. Continue to monitor. No further needs at this time.
[2021-04-26 07:36] VITALS: BP 115/55
--- NOTE | 2021-04-26 08:46 | P ---
[facility] [place] [address] [place] [address] PROCEDURE REPORT Name: XAVIER SHOEMAKER Room #: 209-P ADM IN M.R.#: [id number] Admission: 04/15/21 Attend Phys: Corine Lizarraga MD Discharge: Date of : 62 Report #: [id number] THIS REPORT FOR: cc: Ryan Reaves MD, Neal A. MD McElhinney, Christian C. MD ~ cc: Johnson Eid MD, Ryan Reaves MD DATE OF SERVICE: 04/16/2021 PROCEDURE PERFORMED: Upper endoscopy with biopsies. HISTORY OF PRESENT ILLNESS: The patient is a 61-year-old male who was admitted for dizziness, was also having melanotic type stools for the last 3-4 days. He has been on aspirin 325 a day for history of MT with stent placements in the past. No previous history of upper GI bleed. His last colonoscopy was done at age 51. Several polyps were reportedly removed at that time. His admit hemoglobin was 10.3, has dropped to 9.3 and is stable at 9.3 today. He has been placed on PPI therapy. Aspirin has been held. Plan is for upper endoscopy. DESCRIPTION OF PROCEDURE: The risks and benefits of the procedure were explained to the patient, those risks including but not limited to bleeding, perforation and the risk of sedation. He understood these risks and gave informed consent. Sedation was given using propofol per Anesthesia. Next, using a standard Olympus upper endoscope, the scope was placed in the patient's mouth and advanced under direct vision through the esophagus, stomach and into the second portion of the duodenum. The larynx was normal in appearance. The upper and mid esophagus was normal. In the distal esophagus, there is a possible long segment of Alvarado's esophagus. No evidence of esophagitis. Biopsies were obtained. Upon entering the stomach, a small hiatal hernia was noted. Overall, there was a mild gastritis in the body of the stomach. Biopsies were obtained to rule out H. pylori. There was no evidence of blood throughout the exam today. No ulcerations or erosions were noted. The gastric antrum was normal. The pylorus was normal and patent. The duodenal bulb, first and second portion were all normal. The scope was then withdrawn and the procedure terminated. The patient tolerated the procedure well. IMPRESSION: 1. Possible Alvarado's esophagus. 2. Small hiatal hernia. 3. Mild gastritis. 4. Otherwise, normal upper endoscopy. RECOMMENDATIONS: 1. Await biopsy results. 2. Recommend PPI therapy instead of Pepcid. [address] [address] PROCEDURE REPORT Name: XAVIER SHOEMAKER Room #: 209-P [facility] IN ..#: [id number] Admission: 04/15/21 Attend Phys: Corine Lizarraga MD Discharge: Date of : 62 Report #: [id number] 3. We will discuss proceeding with a colonoscopy in the near future with the patient next. Thank you for allowing me to participate in his care. <ELECTRONICALLY SIGNED> By: Duncan Mccoy MD 04/26/21 0846 1 Duncan Mccoy MD /nt
[2021-04-26 11:22] VITALS: BP 113/60
[2021-04-26 15:13] VITALS: BP 112/52
--- NOTE | 2021-04-26 18:35 | NUR ---
Pt A & O x4. Pt is independent with cares and is up ad luisa. Pt received medications as ordered and also received PRN medications. Pt VS stable. Pt is room air. Pt dressing changed by nurse who pulled nik drain. Pt is SR/ST on the tele. Pt is non compliant with fluid restriction.
[2021-04-26 19:53] VITALS: BP 117/58
--- NOTE | 2021-04-27 04:15 | NUR ---
Assumed pt care at 1900. Pt is alert and oriented. No sign of distress noted in pt. Pt is sitting in recliner. Assessmetnt completed and documented. Pain medication administered upon request. Scheduled meds administered to pt. No acute event during the night. Continue to monitor.
[2021-04-27 04:51] VITALS: BP 116/57
[2021-04-27 07:46] VITALS: BP 115/61
[2021-04-27 11:04] VITALS: BP 111/57
[2021-04-27] MEDS ORDERED: FERREX 150 PLU1 EAC1 PO (12:46)
[2021-04-27 13:48] VITALS: BP 111/57
[2021-04-27 14:32] VITALS: BP 111/57
[2021-04-27 14:37] VITALS: BP 111/57
--- NOTE | 2021-04-27 14:59 | NUR ---
PATIENT DISCHARGED HOME WITH HOME HEALTH, NO QUESTIONS OR CONCERNS AT TIME OF DISCHARGE TEACHING. FAMILY AT BEDSIDE AT TIME OF DISCHARGE. TAKEN OUT BY WHEELCHAIR WITH STAFF TO PRIVATE VEHICLE. TELE AND IV REMOVED.
--- NOTE | 2021-05-01 13:12 | O ---
[facility] [place] [address] [address] [place] [address] OPERATIVE REPORT Name: XAVIER SHOEMAKER Room #: 209-P [facility] IN M.R.#: [id number] Admission: 04/15/21 Attend Phys: Corine Lizarraga MD Discharge: 04/27/21 Date of : 62 Report #: [id number] THIS REPORT FOR: cc: Ryan Reaves MD, Neal A. MD Forman, John M. MD ~ DATE OF SERVICE: 04/20/2021 PREOPERATIVE DIAGNOSIS: Coronary artery disease. POSTOPERATIVE DIAGNOSIS: Coronary artery disease. OPERATION: Coronary artery bypass x3 including left internal mammary artery to left anterior descending artery, saphenous vein to marginal and saphenous vein to posterior descending artery and endoscopic harvest, left greater saphenous vein. SURGEON: Xavier White MD APPLICATION SECURITY ARCHITECT: JERAMIE Wynne. ANESTHESIA: General. INDICATIONS: The patient is a 61-year-old seen for Dr. Eid. The patient has progressive angina, which appears to have been precipitated by anemia. Catheterization demonstrates important 3-vessel disease including a high-grade eccentric calcified lesion at the origin of the circumflex along with in-stent stenoses in the LAD and right coronary arteries. Left ventricular function is satisfactory. FINDINGS AND TECHNIQUE: After general anesthesia was established, saphenous vein was harvested using an endoscopic approach and prepared for use as a conduit. Exposure was obtained through median sternotomy. Left internal mammary artery was harvested from chest wall. Pericardial well was made. Cannulation sutures were placed. Heparin was given. Aorta was cannulated. Right atrium was cannulated. Cardioplegia needle was positioned in the aortic root. Retrograde cardioplegia catheter was placed in the coronary sinus. Cardiopulmonary bypass was established. Aorta was cross clamped. Antegrade and retrograde cardioplegia were given. Ice was poured into the pericardial well. The heart was stopped. During electromechanical arrest, the distal anastomoses were performed. An end-to-side anastomosis was made between vein and the posterior descending artery. Cold cardioplegia was given. Separate segment of vein was sewn in [facility] [address] [place] [address] OPERATIVE REPORT Name: XAVIER SOHEMAKER Room #: 209-P [facility] IN .R.#: [id number] Admission: 04/15/21 Attend Phys: Corine Lizarraga MD Discharge: 04/27/21 Date of : 62 Report #: [id number] end-to-side fashion to the large marginal artery. Cold cardioplegia was given. Left internal mammary artery was sewn in end-to-side fashion to the left anterior descending artery. Patency of this vessel was checked with the temperature technique. Cold cardioplegia was given. Two proximal anastomoses were performed. When these were complete, warm retrograde cardioplegia was given followed by warm continuous blood through the coronary sinus. When this infusion was complete, the crossclamp was removed. De-airing maneuvers were performed. The anastomoses were inspected and found to be satisfactory. As the patient warmed, nice cardiac activity resumed, chest tubes and pacing wires were placed. A marker was placed around the proximal anastomoses. When the patient was warm, he was weaned from cardiopulmonary bypass. Venous cannula was removed. Protamine was given, the aortic cannula was removed. Flows were measured in the bypass grafts. When hemostasis was satisfactory, chest was irrigated with antibiotic solution and closed in the usual fashion. The patient was taken to the Intensive Care Unit in good condition having tolerated the procedure well. All counts were reported as correct. <ELECTRONICALLY SIGNED> By: Xavier White MD 05/01/21 1312 1852 190 Xavier White MD /nt
== END 2021-04-27 15:02 | disposition home health service (06) | DRG 233 ==
LOC: ER 23:41 → 2N 04-15 02:00 → EROBS 04-15 02:00 → ICU 04-15 02:00 → EROBS 04-15 17:54 → 2N 04-15 18:10 → TBA 04-20 08:19 → ICU 04-20 14:09 → 2N 04-22 13:27
PROVIDERS: Emergency Medicine; Hospitalist; Internal Medicine; Internal Medicine Cardiovascular Disease; Nurse Practitioner Family; Physician Assistant; Surgery Vascular Surgery; ADMIT Hospitalist; ATTEND Hospitalist
PROC: 0DB38ZX Excision of Lower Esophagus, Via Natural or Artificial Opening Endoscopic, Diagnostic (ICD-10-PCS; principal; 2021-04-16)
PROC: 0DB68ZX Excision of Stomach, Via Natural or Artificial Opening Endoscopic, Diagnostic (ICD-10-PCS; principal; 2021-04-16)
PROC: 0DBK8ZZ Excision of Ascending Colon, Via Natural or Artificial Opening Endoscopic (ICD-10-PCS; 2021-04-17)
PROC: 0DBL8ZZ Excision of Transverse Colon, Via Natural or Artificial Opening Endoscopic (ICD-10-PCS; 2021-04-17)
PROC: B4101ZZ Fluoroscopy of Abdominal Aorta using Low Osmolar Contrast (ICD-10-PCS; 2021-04-17)
PROC: B2111ZZ Fluoroscopy of Multiple Coronary Arteries using Low Osmolar Contrast (ICD-10-PCS; 2021-04-17)
PROC: 4A023N7 Measurement of Cardiac Sampling and Pressure, Left Heart, Percutaneous Approach (ICD-10-PCS; 2021-04-17)
PROC: B2151ZZ Fluoroscopy of Left Heart using Low Osmolar Contrast (ICD-10-PCS; 2021-04-17)
PROC: 0DBH8ZZ Excision of Cecum, Via Natural or Artificial Opening Endoscopic (ICD-10-PCS; 2021-04-17)
PROC: 02110Z9 Bypass Coronary Artery, Two Arteries from Left Internal Mammary, Open Approach (ICD-10-PCS; 2021-04-20)
PROC: 5A1221Z Performance of Cardiac Output, Continuous (ICD-10-PCS; 2021-04-20)
PROC: 06BQ4ZZ Excision of Left Saphenous Vein, Percutaneous Endoscopic Approach (ICD-10-PCS; 2021-04-20)
PROC: 021109W Bypass Coronary Artery, Two Arteries from Aorta with Autologous Venous Tissue, Open Approach (ICD-10-PCS; 2021-04-20)
PROC: 0W9B30Z Drainage of Left Pleural Cavity with Drainage Device, Percutaneous Approach (ICD-10-PCS; 2021-04-20)
PROC: 4A133B3 Monitoring of Arterial Pressure, Pulmonary, Percutaneous Approach (ICD-10-PCS; 2021-04-20)
PROC: 30233N1 Transfusion of Nonautologous Red Blood Cells into Peripheral Vein, Percutaneous Approach (ICD-10-PCS; 2021-04-23)
DX: I25.118 Atherosclerotic heart disease of native coronary artery with other forms of angina pectoris (principal); K29.71 Gastritis, unspecified, with bleeding; D62 Acute posthemorrhagic anemia; N17.9 Acute kidney failure, unspecified; I31.9 Disease of pericardium, unspecified; Z20.822 Contact with and (suspected) exposure to COVID-19; I10 Essential (primary) hypertension; E66.9 Obesity, unspecified; K44.9 Diaphragmatic hernia without obstruction or gangrene; E78.5 Hyperlipidemia, unspecified; K31.9 Disease of stomach and duodenum, unspecified; E78.00 Pure hypercholesterolemia, unspecified; K22.70 Barrett's esophagus without dysplasia; R00.0 Tachycardia, unspecified; K64.8 Other hemorrhoids; K63.5 Polyp of colon; I95.9 Hypotension, unspecified; E11.9 Type 2 diabetes mellitus without complications; I25.2 Old myocardial infarction; Z95.5 Presence of coronary angioplasty implant and graft; Z79.899 Other long term (current) drug therapy; Z79.4 Long term (current) use of insulin; Z79.82 Long term (current) use of aspirin; Z83.3 Family history of diabetes mellitus; Z82.49 Family history of ischemic heart disease and other diseases of the circulatory system; Z83.49 Family history of other endocrine, nutritional and metabolic diseases; Z87.891 Personal history of nicotine dependence; Z68.39 Body mass index [BMI] 39.0-39.9, adult
CPT/HCPCS: 10078; 10081; 47000; 47001; 47002; 47297; 50010; 50249; 50382; 50668; 51301; 52259; 52287; 53327; 53358; 54118; 56455; 56524; 56525; 56526; 56527; 56528; 56531; 56534; 56668; 56719; 56760; 56898; 57093; 57167; 58585; 58856; 58901; 58918; 62110; 62900; 62950; 65003; 65020; 65090; 65120; 65135; 70005; 83006

== ENCOUNTER 2021-06-12 20:34 | Inpatient (IN) | payer BC ==
[~2021-06-12] VITALS: Ht 167.6 cm; Wt 117.2 kg
--- NOTE | ~2021-06-12 | EKG ---
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
[~2021-06-12 20:34] MED LIST changes: +FERREX 150 PLU1 EAC1 PO; +FREESTYLE LIBR1 EAC2 MISCELL; +METOPROLOL SUCC25 M1 PO; +NOVOLOG FL100 UNIT/M; +SIMVASTATIN40 MG PO; +SYNJARDY XR 121 EACH PO; +TRESIBA FL200 UNIT/1 SUBQ
[2021-06-12 20:37] VITALS: BP 110/58
[2021-06-12 22:01] LABS: ABSOLUTE NEUTROPHILS 8.1 thou/uL (1.4-8.2); BASOPHILS 0.6 % (0.0-2.0); EOSINOPHILS 4.6 % (0.0-3.0); HEMATOCRIT 24.9 % (42.0-52.0); HEMOGLOBIN 7.7 gm/dL (14.0-18.0); LYMPHOCYTES 7.1 % (24.0-44.0); MCH 23.9 pg (26.0-34.0); MCHC 30.7 g/dL (28.0-37.0); MCV 77.8 fL (80.0-100.0); PLATELET COUNT 195 thou/uL (150-400); POLYS 80.7 % (36.0-66.0); RBC 3.21 mil/uL (4.50-6.00); WBC 10.1 thou/uL (4.0-11.0)
[2021-06-12 22:04] LABS: URINE BILIRUBIN NEGATIVE (Negative); URINE BLOOD NEGATIVE (Negative); URINE CLARITY CLEAR; URINE COLOR YELLOW; URINE GLUCOSE-RANDOM* 3+ (Negative); URINE KETONES TRACE (Negative); URINE LEUKOCYTES-REFLEX NEGATIVE (Negative); URINE NITRITE-REFLEX NEGATIVE (Negative); URINE PROTEIN (DIPSTICK) NEGATIVE (Negative)
[2021-06-12 22:10] LABS: CALCIUM 8.2 mg/dL (8.5-10.1); POTASSIUM 3.4 mmol/L (3.5-5.1)
[2021-06-12 22:19] LABS: ALBUMIN 2.8 g/dL (3.4-5.0); TOTAL BILIRUBIN 1.4 mg/dL (0.2-1.0); TOTAL PROTEIN 6.6 g/dL (6.4-8.2)
[2021-06-12] MEDS ORDERED: novolog (23:14)
[2021-06-12] MEDS ORDERED: HYDROCODON-ACE1 EAC7 PO (23:17)
[2021-06-12 23:30] VITALS: BP 108/55
[2021-06-12 23:53] LABS: INR 1.16; PROTIME 12.6 Seconds (10.5-12.1)
[2021-06-13] VITALS (63 sets, daily range): BP systolic 85–141; BP diastolic 35–75
[2021-06-13 00:01] LABS: HEMATOCRIT 22.8 % (42.0-52.0); HEMOGLOBIN 6.8 gm/dL (14.0-18.0)
--- NOTE | 2021-06-13 00:38 | NUR ---
PATIENT ARRIVED TO FLOOR FROM ED. ADMISSION ASSESSMENT COMPLETED. PATIENT DROWSY BUT ANSWERS QUESTIONS APPROPRIATELY.
--- NOTE | 2021-06-13 07:38 | NUR ---
ASSUMED CARE AT 0700. PT ON LEVOPHED, PROTONIX, OCTREOTIDE, AND NS. PRBC INFUSING. PT VITAL SIGNS STABLE
[2021-06-13 08:37] LABS: HEMATOCRIT 27.8 % (42.0-52.0); HEMOGLOBIN 8.2 gm/dL (14.0-18.0)
--- NOTE | 2021-06-13 10:29 | NUR ---
A #5F TRIPLE LUMEN PICC WAS PLACED IN THE RIGHT UPPER BRACHIAL VEIN. VEIN TO CATHETER RATIO WAS LESS THAN 34%. THE LINE WAS PLACED PER HOSPITAL POLICY AFTER A BEDSIDE TIMEOUT WAS COMPLETED. THE LINE WAS TRIMMED TO 48CM AND ADVANCED WITHOUT DIFFICULTY. THE LINE WAS CONFIRMED WITH [employer] AT 2CM EXTERNAL. THE LINE IS RELEASED FOR USE
[2021-06-13 11:45] LABS: HEMATOCRIT 25.2 % (42.0-52.0); HEMOGLOBIN 7.6 gm/dL (14.0-18.0)
--- NOTE | 2021-06-13 12:34 | EKG ---
[address] [address] ELECTROCARDIOGRAM REPORT Name: XAVIER SHOEMAKER Room #: 240-P ADM IN M.R.#: [id number] Admission: 06/12/21 Attend Phys: Geronimo Strickland MD Discharge: Date of : 62 Report #: [id number] [facility] ED Test Date: 2021-06-12 Test Time: 20:58:21 Pat Name: XAVIER SHOEMAKER Department: Room: 240 P Gender: M Manager Staffing: RAJ : 1960 Requested By: Aquiles Caputo Order Number: [id number] MD: Bismark Contreras Measurements Intervals [place] Rate: 104 P: 5 RI: 157 QRS: 28 QRSD: 86 T: -18 QT: 381 QTc: 502 Interpretive Statements Sinus tachycardia Inferior infarct, old Prolonged QT interval Compared to ECG 04/21/2021 07:41:33 Prolonged QT interval now present Sinus rhythm no longer present ST (T wave) deviation no longer present Myocardial infarct finding still present Electronically Signed On 06-13-2021 12:33:[address] LIGHT REPAIRER by Bismark Contreras [email or web address] <ELECTRONICALLY SIGNED> By: Bismark Contreras MD, FACC 06/13/21 1233 57 57 Bismark Contreras MD, [facility] /EPI
--- NOTE | 2021-06-13 14:17 | NUR ---
61-year-old male who came to he ED with complaints of nausea, bloody stools, bloody emesis. He reports that around 530 this evening he begins feeling sick at his stomach he experienced of one episode of nausea with a small amount of bright red blood followed by 1 bowel movement with bright red blood and clots. He then experienced an additional episode of hematemesis right before arrival to the emergency department and once while in the emergency department. In the emergency department he was noted to be tachycardia, hypotensive, and experienced hematemesis(bright red blood with multiple clots) with about 350 cc of estimated blood loss. He was started on octreotide drip, IV fluids, Protonix drip, orders for a transfusion were also performed. He also had a CT of his abdomen and pelvis which showed cirrhosis, mild to moderate ascites and probable chronic portosystemic hypertension. Cholelithiasis. No biliary duct dilatation no evidence of pancreatitis. Mucosal edema and enhancement of duodenum which could be reactive from liver disease and ascites. He also reports nausea, hematemesis, melena stool, dizziness and generalized not feeling well. He denies any headache, chest pain, shortness of breath, fever, chills or recent sick exposure. Past medical history: Diabetes type 2, hypertension, colon polyps, hyperlipidemia, gastritis, Alvarado's esophagus showed with EGD on 04/15/21, coronary artery disease, past CABG in March 2021. Discussed during unit rounds and los. Patient had 4 bands placed and receiving another transfusion. Patient resting, visited with his daughter Elana # [phone], intro to discharge planning. Patient was dc home , last admit with Kelsi bowers . He went back to work. Independent when he is feeling well. Has cane for outside the home if needed. Patient lives with her daughters. One level home. Drives vehicle. No acute or skilled rehab in the past. Will cont. following as needed.
[2021-06-13 14:24] LABS: CALCIUM 7.4 mg/dL (8.5-10.1); CREATININE 1.1 mg/dL (0.7-1.3)
[2021-06-13 14:29] LABS: INR 1.27; PROTIME 13.7 Seconds (10.5-12.1)
[2021-06-13 18:58] LABS: HEMATOCRIT 24.1 % (42.0-52.0); HEMOGLOBIN 7.5 gm/dL (14.0-18.0)
--- NOTE | 2021-06-13 19:16 | NUR ---
PT NOT PROGRESSING TOWARD GOAL OF CARE EVIDENCE BY DECREASED MENTAL STATUS
--- NOTE | 2021-06-13 19:17 | NUR ---
PT PROGRESSING TOWAR DPLAN OF CARE AEB STABILAIZATION OF HGB AND DECREASE IN PRESSORS
[2021-06-14] VITALS (36 sets, daily range): BP systolic 100–147; BP diastolic 56–77
[2021-06-14 00:45] LABS: HEMATOCRIT 22.8 % (42.0-52.0); HEMOGLOBIN 7.1 gm/dL (14.0-18.0)
[2021-06-14 07:05] LABS: HEMATOCRIT 22.2 % (42.0-52.0); MCH 25.9 pg (26.0-34.0); MCHC 31.4 g/dL (28.0-37.0); MCV 82.4 fL (80.0-100.0); RBC 2.69 mil/uL (4.50-6.00); RDW 20.9 % (10.5-14.5)
[2021-06-14 07:18] LABS: ALBUMIN 2.4 g/dL (3.4-5.0); CALCIUM 6.9 mg/dL (8.5-10.1); CREATININE 0.9 mg/dL (0.7-1.3); DIRECT BILIRUBIN 0.6 mg/dL (<0.1-0.2); POTASSIUM 3.6 mmol/L (3.5-5.1); TOTAL BILIRUBIN 1.5 mg/dL (0.2-1.0); TOTAL PROTEIN 5.5 g/dL (6.4-8.2)
[2021-06-14 07:28] LABS: INR 1.21; PROTIME 13.1 Seconds (10.5-12.1)
[2021-06-14 19:32] LABS: HEMATOCRIT 25.4 % (42.0-52.0)
[2021-06-15] VITALS (20 sets, daily range): BP systolic 97–132; BP diastolic 62–72
[2021-06-15 00:24] LABS: HEMATOCRIT 24.6 % (42.0-52.0); HEMOGLOBIN 7.7 gm/dL (14.0-18.0)
[2021-06-15 07:20] LABS: HEMATOCRIT 24.3 % (42.0-52.0); HEMOGLOBIN 7.6 gm/dL (14.0-18.0); MCH 25.9 pg (26.0-34.0); MCHC 31.1 g/dL (28.0-37.0); MCV 83.2 fL (80.0-100.0); RBC 2.93 mil/uL (4.50-6.00); RDW 20.9 % (10.5-14.5); WBC 6.7 thou/uL (4.0-11.0)
[2021-06-15 07:28] LABS: CALCIUM 7.3 mg/dL (8.5-10.1); CREATININE 0.8 mg/dL (0.7-1.3); POTASSIUM 3.1 mmol/L (3.5-5.1)
[2021-06-15 10:42] LABS: % SATURATION 5 % (20-39); IRON 15 ug/dL (65-175); TIBC 312 ug/dL (250-450)
[2021-06-15 10:50] LABS: HEMATOCRIT 23.6 % (42.0-52.0); HEMOGLOBIN 7.5 gm/dL (14.0-18.0)
[2021-06-15 10:53] LABS: SOURCE ABDOMINAL FLUID; TOTAL VOLUME 60 mL
[2021-06-15 10:54] LABS: CLARITY CLEAR; COLOR YELLOW
[2021-06-15 11:04] LABS: BF NUCLEATED CELLS 131 /mm3; BF RBC 291 /mm3
[2021-06-15 12:18] LABS: BF NEUTROPHILS 42 %
[2021-06-15 12:19] LABS: BF MACROPHAGE 41 %
[2021-06-15 21:06] LABS: IgG 709 mg/dL (603-1613)
[2021-06-16 04:51] LABS: HEMATOCRIT 23.4 % (42.0-52.0); HEMOGLOBIN 7.8 gm/dL (14.0-18.0); MCH 27.4 pg (26.0-34.0); MCHC 33.5 g/dL (28.0-37.0); MCV 81.8 fL (80.0-100.0); RBC 2.86 mil/uL (4.50-6.00); RDW 21.2 % (10.5-14.5)
[2021-06-16 05:19] LABS: CREATININE 0.7 mg/dL (0.7-1.3)
[2021-06-16 05:25] VITALS: BP 112/71
[2021-06-16 05:38] LABS: ALBUMIN 2.4 g/dL (3.4-5.0); TOTAL BILIRUBIN 1.4 mg/dL (0.2-1.0); TOTAL PROTEIN 5.4 g/dL (6.4-8.2)
[2021-06-16 06:00] LABS: DIRECT BILIRUBIN 0.6 mg/dL (<0.1-0.2)
[2021-06-16 06:07] LABS: CERULOPLASMIN 33.6 mg/dL (16.0-31.0)
--- NOTE | 2021-06-16 06:23 | NUR ---
PROGRESS PT A/O X4 UP WITH SBA D/T EQUIPMENT NEEDS. ON ROOM AIR LUNGS CLEAR. ABDOMEN TIGHT AND DISTENDED HAD A PARACENTESIS WITH LITERS REMOVED 2/24 UABLE TO TAKE OFF MORE D/T HYPOTENSION. PT HAD 2 LARGE FORMED BROWN/GREEN STOOLS. RIGHT UPPER ARM PICC WITH 3 LUMENS PATENT AND PROTONIX INFUSING AT 25CC/HR AND OCTREOTIDE INFUSING AT 10CC/HR. REPORT HEADACHE THIS AM AND 15 MG TORADOL GIVEN IVP. ACCUCHECKS CONTINUE WITH SSI. VOIDING QS CONTINUE POC.
[2021-06-16 07:09] LABS: HAV IgM AB (ANTI-HAV IgM) Negative (Negative); HEPATITIS B SURFACE AG Negative (Negative); HEPATITIS C VIRUS AB <0.1 (0.0-0.9)
[2021-06-16 08:03] VITALS: BP 110/68
[2021-06-16 09:20] LABS: SOURCE ABDOMINAL
[2021-06-16 10:08] LABS: ANA INTERPRETATION Negative (Negative)
--- NOTE | 2021-06-16 12:14 | NUR ---
SW reviewed chart and spoke with nursing and attending physician. Pt was transferred to 3 from ICU. GI following. Octereotide gtt to be discontinued today. PT/OT evals ordered. 5N consult ordered for possible admission to inpt acute rehab. SW is following to assist as needed with discharge planning.
--- NOTE | 2021-06-16 13:08 | PATH ---
[facility] [address] [place] [address] PATHOLOGY RPT PROCEDURE Name: XAVIER SHOEMAKER Room #: 364-P ADM IN .R.#: [id number] Admission: 06/12/21 Date of : 62 Discharge: Report #: [id number] Path Case #: [id number] Note [facility] Accession Number: [id number] TESTS RESULT FLAG UNITS REF RANGE LAB Clinician Provided Cytology Information No. of containers..01 Other (Miscellaneous) Source: ABDPMINAL FLUID DIAGNOSIS: 02 ABDOMINAL FLUID NEGATIVE FOR MALIGNANT CELLS. MESOTHELIAL CELLS AND INFALAMMATORY CELLS ARE PRESENT. THIS INTERPRETATION INCLUDES EVALUATION OF A CELL BLOCK. Signed out by: 02 Lillie Bennett MD, Pathologist NPI- [id number] Performed by: [address], Director Of Retail Operations ([facility]) Gross description: 01 25ML, YELLOW, CLEAR /LCS 06/15/2021 1631 Local FLAG LEGEND: L-Low Normal,H-High Normal,LL-Alert Low,HH-Alert High <-Panic Low,>-Panic High,A-Abnormal,AA-Critical Abnormal Performed at: [address] [place] [address] Dionisio Reid MD, [address] [address] Lillie Bennett MD, Specimen Comment: A courtesy copy of this report has been sent to [phone] Specimen Comment: Report sent to Performed at: [address], [place], [place] [id number] MD Dionisio Reid MD Phone: [phone]
[2021-06-16 13:52] LABS: HEMATOCRIT 24.7 % (42.0-52.0); HEMOGLOBIN 8.1 gm/dL (14.0-18.0)
[2021-06-16 14:59] VITALS: BP 113/77
[2021-06-16] MEDS ORDERED: PROTONIX40 M2 PO (15:35)
[2021-06-16] MEDS ORDERED: SPIRONOLACTONE25 M1 PO (15:35)
[2021-06-16] MEDS ORDERED: TORSEMIDE20 MG PO (15:35)
[2021-06-16 16:26] VITALS: BP 113/77
[2021-06-16 17:07] LABS: BODY FLUID ALBUMIN 0.3 g/dL (Not Estab.); BODY FLUID AMYLASE 11 U/L (()); BODY FLUID GLUCOSE 204 mg/dL (()); BODY FLUID LDH 59 IU/L (()); BODY FLUID PROTEIN 0.6 g/dL (())
--- NOTE | 2021-06-16 18:40 | NUR ---
ASSUMED PATIENT CARE AT 0700. A/O X4. ABD FRIM AND DISTENTED. NO BLEEDING NOTED. PROGRESSING TOWARDS POC GOALS.
[2021-06-16 20:21] VITALS: BP 98/63
[2021-06-17 02:54] VITALS: BP 113/74
[2021-06-17 05:31] LABS: INR 1.16; PROTIME 12.6 Seconds (10.5-12.1)
[2021-06-17 05:33] LABS: ALBUMIN 2.4 g/dL (3.4-5.0); CALCIUM 6.9 mg/dL (8.5-10.1); CREATININE 0.8 mg/dL (0.7-1.3); TOTAL BILIRUBIN 1.4 mg/dL (0.2-1.0); TOTAL PROTEIN 6.1 g/dL (6.4-8.2)
[2021-06-17 05:45] LABS: HEMATOCRIT 24.1 % (42.0-52.0); HEMOGLOBIN 7.7 gm/dL (14.0-18.0); MCH 26.1 pg (26.0-34.0); MCHC 31.9 g/dL (28.0-37.0); MCV 81.8 fL (80.0-100.0); RBC 2.95 mil/uL (4.50-6.00); RDW 21.3 % (10.5-14.5); WBC 6.7 thou/uL (4.0-11.0)
[2021-06-17 07:30] VITALS: BP 118/74
--- NOTE | 2021-06-17 07:37 | NUR ---
ASSUMED PT CARE AT 1900. PT RESTING COMFORTABLY, IS INDEPENDENT, AND UP AD SUZANNE. PT IS ABLE TO EXPRESS NEEDS. PT CURRENTLY HAS PROTONIX INFUSING AT 8MG/HR. HAS BEEN NPO SINCE MIDNIGHT FOR ULTRASOUND SCHEDULED THIS MORNING. PT IS PROGRESSING TOWARDS POC GOALS. CONTINUE WITH PLAN OF CARE.
[2021-06-17 12:30] LABS: HEMATOCRIT 23.8 % (42.0-52.0); HEMOGLOBIN 7.6 gm/dL (14.0-18.0)
[2021-06-17 14:05] VITALS: BP 106/64; BP 108/70
[2021-06-17 14:10] VITALS: BP 102/71
[2021-06-17 16:30] VITALS: BP 108/70
[2021-06-17] MEDS ORDERED: KLOR-CON M2020 MEQ PO (16:51)
[2021-06-17] MEDS ORDERED: CARVEDILOL3.125 MG PO (16:51)
[2021-06-17] MEDS ORDERED: MAG-OXIDE400 MG PO (16:51)
[2021-06-17] MEDS ORDERED: ASA81BEC PO (16:51)
--- NOTE | 2021-06-17 19:32 | NUR ---
RN ASSUMED PT'S CARE AT 0700-1820PM, PT IS A&OX4, PT IS ON ROOM AIR , PT'S VS ARE STABLE, BUT PT'S HGB DRIP TO 7.6, PT HAS 1 UNIT BLOOD TRANSFUSION TODAY, PT IS TOLERATVE TRANSFUSIN , PT FINISHS TRANSFUSION AT 1630PM, PT DOES NOT HAVE REACTION BY 1820PM,PT AND HER DAUGHTER UNDERSTAND DC TEACHING WELL , PT DOES NOT HAVE PAIN AND S/S OF GI BLEEDING BY 1820PM, PT'S DAUGHTER STAYS AT BEDSIDE WITH PT, PT 'S DAUGHTER AIR TABLE OPERATOR PT TO GO HOME AT 1820PM.
== END 2021-06-17 18:18 | disposition home or self-care (01) | DRG 871 ==
LOC: ER 20:34 → ICU 23:06 → EROBS 23:06 → ICU 06-13 00:43 → 3W 06-15 15:34
PROVIDERS: Emergency Medicine; Internal Medicine; Nurse Practitioner; Nurse Practitioner Family; Pediatrics; Psychiatry & Neurology Neurology; ADMIT Internal Medicine; ATTEND Internal Medicine
PROC: 30233N1 Transfusion of Nonautologous Red Blood Cells into Peripheral Vein, Percutaneous Approach (ICD-10-PCS; principal; 2021-06-13)
PROC: 06L38CZ Occlusion of Esophageal Vein with Extraluminal Device, Via Natural or Artificial Opening Endoscopic (ICD-10-PCS; principal; 2021-06-13)
PROC: 05HY33Z Insertion of Infusion Device into Upper Vein, Percutaneous Approach (ICD-10-PCS; principal; 2021-06-13)
PROC: 0W9G3ZZ Drainage of Peritoneal Cavity, Percutaneous Approach (ICD-10-PCS; 2021-06-15)
DX: A41.9 Sepsis, unspecified organism (principal); I81 Portal vein thrombosis; R57.8 Other shock; I85.01 Esophageal varices with bleeding; D62 Acute posthemorrhagic anemia; I47.1 Supraventricular tachycardia; R18.8 Other ascites; K80.20 Calculus of gallbladder without cholecystitis without obstruction; E11.9 Type 2 diabetes mellitus without complications; I10 Essential (primary) hypertension; E78.5 Hyperlipidemia, unspecified; I25.10 Atherosclerotic heart disease of native coronary artery without angina pectoris; Z20.822 Contact with and (suspected) exposure to COVID-19; I95.9 Hypotension, unspecified; R74.01 Elevation of levels of liver transaminase levels; K74.60 Unspecified cirrhosis of liver; E87.6 Hypokalemia; K75.81 Nonalcoholic steatohepatitis (NASH); E66.01 Morbid (severe) obesity due to excess calories; Z68.37 Body mass index [BMI] 37.0-37.9, adult; Z86.010 Personal history of colon polyps; Z95.1 Presence of aortocoronary bypass graft; Z95.5 Presence of coronary angioplasty implant and graft; I25.2 Old myocardial infarction
CPT/HCPCS: 10078; 10779; 27000; 62110; 62900; 85076